=== PATIENT | male | born 1995 | race Caucasian/White ===

== ENCOUNTER 2016-08-01 09:39 | Inpatient (IN) | payer BC, OTHER ==
[~2016-08-01] VITALS: Ht 185.4 cm; Wt 88.9 kg
[2016-08-01] MEDS ORDERED: MAG HYDROX/AL HYDROX/SIMETH 30 ML LIQUID UDC PO PRN (14:45)
[2016-08-01] MEDS ORDERED: LORAZEPAM 2 MG/1 ML VIAL IM PRN (14:45)
[2016-08-01] MEDS ORDERED: MIRALAX 17 GM POWD.PACK PO PRN (14:45)
[2016-08-01] MEDS ORDERED: DICYCLOMINE HCL 20 MG TABLET PO PRN (14:45)
[2016-08-01] MEDS ORDERED: THIAMINE HCL 200 MG/2 ML VIAL IM ONE (14:45)
[2016-08-01] MEDS ORDERED: CLONIDINE HCL 0.1 MG TABLET PO PRN (14:45)
[2016-08-01] MEDS ORDERED: HYDROXYZINE PAMOATE 25 MG CAPSULE PO PRN (14:45)
[2016-08-01] MEDS ORDERED: LOPERAMIDE HCL 2 MG CAPSULE PO PRN ×2 (14:45)
[2016-08-01] MEDS ORDERED: diphenhydrAMINE 50 MG CAPSULE PO PRN (14:45)
[2016-08-01] MEDS ORDERED: PROMETHAZINE HCL 25 MG/1 ML VIAL IM PRN (14:45)
[2016-08-01] MEDS ORDERED: MAGNESIUM HYDROXIDE 30 ML LIQUID UDC PO PRN (14:45)
[2016-08-01] MEDS ORDERED: ACETAMINOPHEN 325 MG TABLET PO PRN (14:45)
[2016-08-01] MEDS ORDERED: ONDANSETRON ODT 4 MG TAB.RAPDIS SL PRN (14:45)
[2016-08-01] MEDS ORDERED: LORAZEPAM 1 MG TABLET PO PRN ×2 (14:45)
[2016-08-01 15:30] VITALS: BP 118/70
--- NOTE | 2016-08-01 15:30 | NUR ---
ADMISSION NOTE ALLERGY-NKA/NKFA STATUS-FULL CODE HEIGHT-6'1 WEIGHT-196IBS PCP-[facility]-Anxiety/Depression diagnosed in 2008 VITAL SIGNS-B/p-118/70, HR-81,RR-16,TEMP-97.4,O2-98%, PAIN-0/10 COWS-2 CIWA-1 Pt is 21 year old male admitted to [facility] at 1530 on08/01/[address] Hartmann. upon arrival pt was able to provide urine for urine drug screen with no complaint of burning or discomfort. Orientation to the unit provided. Skin assessment done noted with right upper arm skin discoloration skin noted intact. Pt denied any SI/HI ideation. Pt denied hospitalization in the last month. Pt is alert oriented x4 in stable condition. Vital signs were stable. Pt's abdomen is soft and non distended. Bowel sounds heard in all quadrants, respirations are even unlabored. lungs clear upon auscultation. Pt able to move all extremities without any pain or discomfort. Pt had last BM today 08/01/16. Pt refused FLU/PNA. Dr. Hartmann was notified of admission, Psychiatrist was also notified. Pt reported never smoking. Pt brought no home medication. Pt reported s/s of withdrawal as Anxiety, depression, sweats, shakes,trouble sleeping, chest pain, headache. Pt reported history of right elbow surgery in 2008. Pt reported currently living with parents. Pt also reported family history of mother has anxiety, depression, and heart disease, father DM type 2, depression, anxiety. Pt reported first time in treatment. SUBSTANCE HISTORY :- 1.ETOH(BEER)- DRINKING SINCE 2015, PO DAILY 3 TO 4 GLASSES OF 12 ONCE, LAST DRINK WAS ON 07/25/16 1 CAN OF 16 OZ AT 2100 2.ADDERALL- USING SINCE 2014 PO/SL 10 TO 15 MG 3 TO 4 TIMES A WEEK 10 to 15MG, LAST USED WAS 07/31/16 45MG, AT 1430 PO. 3.VYVANSE- USING SINCE 2014 ONCE OR TWICE A WEEK 70MG LAST USED WAS 07/04/16 AT 1200, 30MG PO. Pt is resting in his room in stable condition. Orientation to the unit provided. Pt educated regarding use of the call light and all questions answered. All safety measures in place, Fall precautions in place. Bed is locked and low position, call light within reach. Will cont to monitor. Addendum: 08/01/16 at 2004 by CHENCHO MOSQUEDA LVN Pt admitted for ETOH/Amphetamine dependence.
[2016-08-01 16:15] LABS: *AMPHETAMINE, URINE POSITIVE (NEGATIVE); *BARBITURATE, URINE NEGATIVE (NEGATIVE); *CANNABINOID, URINE NEGATIVE (NEGATIVE); *COCCAINE, URINE NEGATIVE (NEGATIVE); *OPIATE, URINE NEGATIVE (NEGATIVE); *PHENCYCLIDINE SCREEN,URINE NEGATIVE (NEGATIVE)
[2016-08-01 18:50] LABS: BASOPHILS # (AUTO) 0.1 K/uL (0.0-0.2); BASOPHILS % (AUTO) 0.6 % (0.0-2.0); EOSINOPHILS # (AUTO) 0.4 K/uL (0.0-0.7); HEMATOCRIT 45.3 % (40.0-50.0); HEMOGLOBIN 15.3 g/dL (14.0-18.0); LYMPHOCYTES # (AUTO) 2.5 K/uL (0.8-4.8); LYMPHOCYTES % (AUTO) 26.7 % (20.5-51.5); MEAN CORPUSCULAR HEMOGLOBIN 30.4 uug (27.0-31.0); MEAN CORPUSCULAR HGB CONC 34 g/dL (32.0-37.0); MEAN CORPUSCULAR VOLUME 90.1 fL (82.0-92.0); MONOCYTES # (AUTO) 0.6 K/uL (0.1-1.30); MONOCYTES % (AUTO) 6.3 % (0.0-11.0); NEUTROPHILS # (AUTO) 5.6 K/uL (1.8-8.9); NEUTROPHILS % (AUTO) 62.4 % (38.5-71.5); PLATELET COUNT (AUTO) 249 K/uL (150-450); RED BLOOD CELL COUNT(AUTO) 5.03 MIL/uL (4.70-6.10); RED CELL DISTRIBUTION WIDTH 11.5 % (11.5-14.5); WHITE BLOOD COUNT (AUTO) 9.2 K/uL (4.0-11.2)
[2016-08-01 19:02] LABS: ALANINE AMINOTRANSFERASE 34 U/L (16-63); ALBUMIN 4.2 g/dL (3.4-5.0); ALKALINE PHOSPHATASE 82 U/L (50-136); ASPARTATE AMINOTRANSFERASE 21 U/L (15-37); BILIRUBIN,TOTAL 1.4 mg/dL (0.2-1.0); CALCIUM 9.1 mg/dL (8.5-10.1); CARBON DIOXIDE 27 mmol/L (21-32); CHLORIDE 105 mmol/L (98-107); CREATININE 1.2 mg/dL (0.6-1.3); GFR 75 mL/min (>60); GLUCOSE 185 mg/dL (74-106); MAGNESIUM 1.9 mg/dL (1.8-2.4); POTASSIUM 3.7 mmol/L (3.5-5.1); SODIUM SERUM 142 mmol/L (136-145); UREA NITROGEN, BLOOD 9 mg/dL (7-18)
--- NOTE | 2016-08-01 19:25 | NUR ---
END OF SHIFT NOTE Gave report to night nurse 21 year old male admitted for ETOH/Amphetamine dependence. NKA/Regular diet, Full code. Skin intact. Pt reported PMH of Anxiety/Depression. Pt currently not on any taper PRN's available for withdrawal. No PRN's given during shift. Pt's total intake 500ml, x1 voided, Safety measures in place, call light within reach. Pt endorsed to night time nanny in stable condition.
[2016-08-01 19:27] LABS: HIV-1 p24 ANTIGEN NON REACTIVE (NONREACTIVE); HIV-1/2 ANTIBODY NON REACTIVE (NONREACTIVE)
[2016-08-01 19:31] LABS: THYROID STIMULATING HORMONE 1.639 mIU/mL (0.358-3.740)
[2016-08-01 19:38] LABS: ETHANOL < 3 MG/DL (0-0)
[2016-08-01 20:00] VITALS: BP 132/77
--- NOTE | 2016-08-01 20:00 | NUR ---
START OF SHIFT NOTE PATIENT IS A 21 YEAR OLD MALE , NEWLY ADMIT ON 08/01/16 FOR ETOH/AMPHETAMINE DEPENDENCE. PATIENT IS FULL CODE, REGULAR DIET AND NO KNOWN ALLERGY. PATIENT REPORTS PMH OF ANXIETY AND DEPRESSION. PATIENT DRINKS BEER 3-4 GLASSES OF 12 OZ SINCE JAN 2016, TAKES ADDERALL PO/SL 10-15 MG 3-4X A WEEK SINCE JAN 2015 AND VYVANSE 70 MG 1-2X A WEEK SINCE JAN 2015. PATIENT WAS PLACED ON ATIVAN PRN WITH PARAMETERS . ON FALL /SEIZURE PRECAUTION. FIRST TIME IN TREATMENT. SKIN INTACT. PATIENT DID NOT REQUIRE ANY PRN DURING THE DAY. LAST CIWA 1.PATIENT ALERT AND ORIENTED X 4. RESPIRATION EVEN AND UNLABORED. PATIENT STATES HE'S ALRIGHT JUST ANXIOUS. NO NV/D. DENIES ANY PAIN . SAFETY MEASURES IN PLACE. CALL LIGHT IN REACH. WILL CONTINUE TO MONITOR.
[2016-08-02] VITALS: BP 108/69
[2016-08-02 04:00] VITALS: BP 129/57
--- NOTE | 2016-08-02 07:30 | NUR ---
Start of shift Endorsement received from nightshift nurse. Pt is a 21 y/o male admitted for alcohol dependence. Pt has been placed under observation and withdrawal symptoms being treated. Pt is tolerating the detox well AEB CIWA 0. VS WNL, Full Code. PT is alert and oriented x4. Pt is in STABLE condition at this time. Remains compliant with medication and diet regimen. All needs have been met, All safety measures in place per hospital policy. Bed in lowest position, side rails up x2, call-light within reach. Will continue to monitor
--- NOTE | 2016-08-02 07:34 | NUR ---
END OF SHIFT NOTE PATIENT IS A 21 YEAR OLD MALE , NEWLY ADMIT ON 08/01/16 FOR ETOH/AMPHETAMINE DEPENDENCE. PATIENT IS FULL CODE, REGULAR DIET AND NO KNOWN ALLERGY. PATIENT REPORTS PMH OF ANXIETY AND DEPRESSION. PATIENT DRINKS BEER 3-4 GLASSES OF 12 OZ SINCE JAN 2016, TAKES ADDERALL PO/SL 10-15 MG 3-4X A WEEK SINCE JAN 2015 AND VYVANSE 70 MG 1-2X A WEEK SINCE JAN 2015. PATIENT WAS PLACED ON ATIVAN PRN WITH PARAMETERS . ON FALL /SEIZURE PRECAUTION. FIRST TIME IN TREATMENT. SKIN INTACT. PATIENT DID NOT REQUIRE ANY PRN DURING THE DAY. LAST CIWA 1.PATIENT ALERT AND ORIENTED X 4. RESPIRATION EVEN AND UNLABORED. PATIENT STATES HE'S ALRIGHT JUST ANXIOUS. NO NV/D. DENIES ANY PAIN . PATIENT IN ROOM MOST OF THE SHIFT. PATIENT DID NOT REQUIRE ANY PRN MEDICATION DURING SHIFT. SAFETY MEASURES IN PLACE. CALL LIGHT IN REACH. WILL CONTINUE TO MONITOR. SLEPT 9 HOURS . FLUID INTAKE 355 ML. VOIDED X 1. NO BM. LAST CIWA 0.
[2016-08-02 08:00] VITALS: BP 118/64
[2016-08-02] MEDS ORDERED: TUBERCULIN,PURIF.PROT.DERIV. 5 TU/0.1 ML TEST ID ONE (09:00)
[2016-08-02] MEDS: THIAMINE HCL 100 MG TABLET PO SCH (09:11)
[2016-08-02] MEDS: MULTIVITAMINS,THERAPEUTIC TABLET PO SCH (09:11)
[2016-08-02] MEDS: FOLIC ACID 1 MG TABLET PO SCH (09:11)
[2016-08-02 12:00] VITALS: BP 135/80
[2016-08-02 16:00] VITALS: BP 132/84
--- NOTE | 2016-08-02 19:12 | NUR ---
End of Shift Endorsement given to nightshift nurse. Pt is a 21 y/o male admitted for alcohol dependence. Pt has been placed under observation and withdrawal symptoms being treated. Pt is tolerating the detox well AEB CIWA 1. PT participated in groups and activities. Intake: 3400ml, Void x4, BM x1. VS WNL, Full Code. PT is alert and oriented x4. Pt is in STABLE condition at this time. Remains compliant with medication and diet regimen. All needs have been met, All safety measures in place per hospital policy. Bed in lowest position, side rails up x2, call-light within reach. Will continue to monitor
[2016-08-02 20:00] VITALS: BP 127/68
--- NOTE | 2016-08-02 20:00 | NUR ---
START OF SHIFT NOTE PATIENT IS A 21 YEAR OLD MALE, ADMITTED ON 08/01/16 FOR ETOH/AMPHETAMINE DEPENDENCE. PATIENT IS FULL CODE, REGULAR DIET AND NO KNOWN ALLERGY. PATIENT REPORTS PMH OF ANXIETY AND DEPRESSION. PATIENT DRINKS BEER 3-4 GLASSES OF 12 OZ SINCE JAN 2016, ADDERALL PO/SL 10-15 MG 3-4X A WEEK SINCE JAN 2015 AND VYVANSE 70 MG 1-2X A WEEK SINCE JAN 2015. PATIENT IS ON PRN ATIVAN WITH PARAMETERS. FIRST TIME IN TREATMENT. SKIN INTACT. PATIENT DID NOT REQUIRE ANY PRN MEDICATIONS DURING THE DAY. LAST CIWA 0. PATIENT IN ROOM, READING BOOK . PATIENT ALERT AND ORIENTED X 4. RESPIRATION EVEN AND UNLABORED. PATIENT C/O HEADACHE 09/26. NO N/V. NO TREMORS, NO SWEATING. PATIENT WITH GOOD APPETITE AND DRINKING FLUIDS WELL. SAFETY MEASURES IN PLACE. CALL LIGHT IN REACH. WILL CONTINUE TO MONITOR.
--- NOTE | 2016-08-02 20:36 | NUR ---
PRN TYLENOL ADMINISTRATION PATIENT C/O HEADACHE 09/26. PRN TYLENOL GIVEN. WILL MONITOR FOR EFFECTIVENESS.
--- NOTE | 2016-08-02 21:36 | NUR ---
PRN TYLENOL RE-ASSESSMENT PATIENT STATES TYLENOL HELPFUL AND EFFECTIVE. WILL CONTINUE TO MONITOR
[2016-08-03] VITALS: BP 126/69
[2016-08-03 04:00] VITALS: BP 113/64
--- NOTE | 2016-08-03 07:05 | NUR ---
Start of shift Endorsement received from nightshift nurse. Pt is a 21 y/o male admitted for alcohol dependence. Pt has been placed under observation and withdrawal symptoms being treated. Pt is tolerating the detox well AEB CIWA 0. Pt reports sleeping 8 hours. VS WNL, Full Code. PT is alert and oriented x4. Pt is in STABLE condition at this time. Remains compliant with medication and diet regimen. All needs have been met, All safety measures in place per hospital policy. Bed in lowest position, side rails up x2, call-light within reach. Will continue to monitor
--- NOTE | 2016-08-03 07:13 | NUR ---
END OF SHIFT NOTE PATIENT IS A 21 YEAR OLD MALE, ADMITTED ON 08/01/16 FOR ETOH/AMPHETAMINE DEPENDENCE. PATIENT IS FULL CODE, REGULAR DIET AND NO KNOWN ALLERGY. PATIENT REPORTS PMH OF ANXIETY AND DEPRESSION. PATIENT DRINKS BEER 3-4 GLASSES OF 12 OZ SINCE JAN 2016, ADDERALL PO/SL 10-15 MG 3-4X A WEEK SINCE JAN 2015 AND VYVANSE 70 MG 1-2X A WEEK SINCE JAN 2015. PATIENT IS ON PRN ATIVAN WITH PARAMETERS. FIRST TIME IN TREATMENT. SKIN INTACT. ALERT AND ORIENTED X 4. RESPIRATION EVEN AND UNLABORED. PATIENT C/O HEADACHE 09/26. NO N/V. NO TREMORS, NO SWEATING. PATIENT WITH GOOD APPETITE AND DRINKING FLUIDS WELL. PATIENT WAS GIVEN PRN TYLENOL FOR HEADACHE, EFFECTIVE. SAFETY MEASURES IN PLACE. CALL LIGHT IN REACH. WILL CONTINUE TO MONITOR. SLEPT 8 HOURS. FLUID INTAKE 737 ML. VOIDED X 1. NO BM. LAST CIWA 0.
[2016-08-03 08:02] VITALS: BP 118/61
[2016-08-03] MEDS: buPROPion XL 150 MG TAB.SR.24H PO SCH (08:51)
[2016-08-03] MEDS: MULTIVITAMINS,THERAPEUTIC TABLET PO SCH (08:52)
[2016-08-03] MEDS: FOLIC ACID 1 MG TABLET PO SCH (08:52)
[2016-08-03] MEDS: THIAMINE HCL 100 MG TABLET PO SCH (08:52)
[2016-08-03 09:36] LABS: BILIRUBIN,DIRECT 0.2 mg/dL (0.0-0.2); BILIRUBIN,TOTAL 1.4 mg/dL (0.2-1.0); CALCIUM 8.8 mg/dL (8.5-10.1); MAGNESIUM 1.8 mg/dL (1.8-2.4); POTASSIUM 4.2 mmol/L (3.5-5.1)
[2016-08-03 12:00] VITALS: BP 122/66
[2016-08-03 12:09] LABS: HCV AB 0.1 s/co ratio (0.0-0.9); HEPATITIS B CORE AB, IgM Negative (Negative); HEPATITIS B SURFACE AG Negative (Negative)
[2016-08-03 16:00] VITALS: BP 136/64
--- NOTE | 2016-08-03 19:07 | NUR ---
End of Shift Endorsement given to nightshift nurse. Pt is a 21 y/o male admitted for alcohol dependence. Pt has been placed under observation and withdrawal symptoms being treated. Pt is tolerating the detox well AEB CIWA 0. PT participated in groups and activities. Intake: 1460ml, Void x4, BM x1. VS WNL, Full Code. PT is alert and oriented x4. Pt is in STABLE condition at this time. Remains compliant with medication and diet regimen. All needs have been met, All safety measures in place per hospital policy. Bed in lowest position, side rails up x2, call-light within reach. Will continue to monitor
--- NOTE | 2016-08-03 19:30 | NUR ---
START OF SHIFT NOTE: Patient is a 21 y.o male admitted on 08/01/16 for Alcohol dependence. Patient reported drinking 3-4 glasses of 12 oz beer. Patient with medical history of Anxiety & Depression. Patient is on a regular diet with no known food and drug allergies. Full Code status. Seizure and Fall precautions noted. Patient is placed under observation with PRN mediations available for symptoms of withdrawal. Patient has been compliant. Last CIWA is 0. No PRN medications given during day shift. Patient is alert & oriented x4. No shortness of breath noted. Respiration even & unlabored. Abdomen soft & non-distended. Bowel sounds active in all four quadrants. No nausea/vomiting noted. Pt denies any complaints of pain/discomfort. No bilateral hand tremors noted. Patient denies SI/HI. Safety precautions are in place. Bed locked in lowest position. Both side rails up. Call light within pt's reach. Will continue to monitor patient.
[2016-08-03 20:57] VITALS: BP 131/68
--- NOTE | 2016-08-04 | NUR ---
Vitals/CIWA deferred Patient refused vitals at this time. Patient asleep in bed. No shortness of breath noted. Respiration even & unlabored. Safety precautions are in place. Will continue to monitor.
--- NOTE | 2016-08-04 07:24 | NUR ---
END OF SHIFT NOTE: Patient is a 21 y.o male admitted on 08/01/16 for Alcohol dependence. Patient reported drinking 3-4 glasses of 12 oz beer. Patient with medical history of Anxiety & Depression. Patient is on a regular diet with no known food and drug allergies. Full Code status. Seizure and Fall precautions noted. Patient is under observation with PRN medications available for symptoms of withdrawal. Last CIWA is 0. No PRN medications were given to patient. Patient remained stable and vitals remains WNL. Patient alert & oriented x4. No shortness of breath noted. Respiration even & unlabored. Pt still asleep at this time. Pt slept for a total of 7 hours. Pt consumed 2210ml of fluids. Voided 3x with no bowel movement. All needs attended & met. Safety precautions are in place. Will endorse pt to day shift nurse.
--- NOTE | 2016-08-04 07:47 | NUR ---
BEGINNING OF SHIFT Patient endorsement report received from restaurant shift leader nurse, all pertinent information discussed. Patient is a 16 year old male admitted on 08/01/2016 with admitting Dx: ETOH dependence. Patient reports past medical history of anxiety, and depression. Patient with substance use history of: etoh-beer 3 -4 glasses of 12 oz a day since Jan 2016, Adderall 10-15mg 3-4 x a week and Vyvanse 70mg 1-2x a week since January 2015. As per restaurant shift leader patient slept for 7 hours, and received no PRNs during restaurant shift leader. Patients last ciwa score of: 0. Patient received in bed with eyes closed respirations are even and unlabored. Responsive to verbal stimuli, educated regarding plan of care for the day and medication regimen, safety measures in place, call light with in reach, will continue to monitor closely.
[2016-08-04 09:12] VITALS: BP 120/69
[2016-08-04] MEDS: IBUPROFEN 400 MG TABLET PO PRN ×2 (09:17→20:12)
[2016-08-04] MEDS: buPROPion XL 150 MG TAB.SR.24H PO SCH (09:17)
[2016-08-04] MEDS: MULTIVITAMINS,THERAPEUTIC TABLET PO SCH (09:17)
[2016-08-04] MEDS: FOLIC ACID 1 MG TABLET PO SCH (09:17)
[2016-08-04] MEDS: THIAMINE HCL 100 MG TABLET PO SCH (09:17)
--- NOTE | 2016-08-04 09:17 | NUR ---
PRN MOTRIN Patient c/o neck and back pain, administered Motrin 400mg Po as ordered, will monitor effectiveness.
--- NOTE | 2016-08-04 10:17 | NUR ---
MOTRIN REASSESSMENT Patient reports medication with relief, will continue to monitor.
[2016-08-04 13:29] VITALS: BP 108/63
[2016-08-04 17:49] VITALS: BP 137/60
[2016-08-04 17:51] LABS: *AMPHETAMINE, URINE NEGATIVE (NEGATIVE); *BARBITURATE, URINE NEGATIVE (NEGATIVE); *CANNABINOID, URINE NEGATIVE (NEGATIVE); *COCCAINE, URINE NEGATIVE (NEGATIVE); *OPIATE, URINE NEGATIVE (NEGATIVE); *PHENCYCLIDINE SCREEN,URINE NEGATIVE (NEGATIVE)
--- NOTE | 2016-08-04 18:45 | NUR ---
END OF SHIFT Patient alert and oriented x4, compliant with therapeutic plan of care. Patient with admitting Dx: ETOH dependence, Patient continues under close observation, and is scheduled to be discharged tomorrow to [facility], urine drug screen completed. Patient encouraged adequate PO fluid intake as tolerated,. 0900 assessment patient presented with: no s/sx of withdrawal with ciwa score of: 0; 1300 assessment patient presented with no s/sx of withdrawal with ciwa score of: 0 1700 assessment patient presented with no s/sx of withdrawal with ciwa score of: 0 . Patient encouraged to attend group therapies/sessions to learn new coping skills to prevent relapse, noted attending and participating, denies SI/HI. Safety measures in place. Call light with in reach, will continue to monitor closely. Patient endorsement report given to hourly shift nurse, all pertinent information discussed.
--- NOTE | 2016-08-04 19:15 | NUR ---
START OF SHIFT NOTE: Patient is a 21 y.o male admitted on 08/01/16 for Alcohol dependence. Patient reported drinking 3-4 glasses of 12 oz beer. Patient with medical history of Anxiety & Depression. Patient is on a regular diet with no known food and drug allergies. Full Code status. Seizure and Fall precautions noted. Patient is placed under observation with PRN medications available for symptoms of withdrawal. Patient has been compliant. Last CIWA is 0. Pt was given PRN Motrin during day shift. Patient is scheduled to be discharge tomorrow. Urine drug screen collected and resulted. Patient is alert & oriented x4. No shortness of breath noted. Respiration even & unlabored. Abdomen soft & non-distended. Bowel sounds active in all four quadrants. No nausea/vomiting noted. Pt complains of 3/10 back of neck pain. No bilateral hand tremors noted. Patient denies SI/HI. Safety precautions are in place. Bed locked in lowest position. Both side rails up. Call light within pt's reach. Will continue to monitor patient.
[2016-08-04 20:00] VITALS: BP 141/80
--- NOTE | 2016-08-04 20:12 | NUR ---
PRN Motrin Patient complains of 3/10 back of neck pain. PRN Motrin given as ordered. Will continue to monitor patient.
[2016-08-04] MEDS ORDERED: Bupropion Hcl PO (21:02)
--- NOTE | 2016-08-04 21:12 | NUR ---
PRN Reassessment PRN medication effective. Patient verbalized relief from pain. Patient lying in bed and appears comfortable. Will continue to monitor patient.
--- NOTE | 2016-08-05 06:59 | NUR ---
END OF SHIFT NOTE: Patient is a 21 y.o male admitted on 08/01/16 for Alcohol dependence. Patient reported drinking 3-4 glasses of 12 oz beer. Patient with medical history of Anxiety & Depression. Patient is on a regular diet with no known food and drug allergies. Full Code status. Seizure and Fall precautions noted. Patient was under observation with PRN medications available for symptoms of withdrawal. Pt is scheduled to be discharge today. Urine drug screen collected and resulted. Last CIWA is 0. Pt was given PRN Motrin for pain at the back of neck and was effective. Patient remained stable and vitals remains WNL. Patient alert & oriented x4. No shortness of breath noted. Respiration even & unlabored. Pt still asleep at this time. Pt slept for a total of 4 hours. Pt consumed 1300ml of fluids. Voided 4x with no bowel movement. All needs attended & met. Safety precautions are in place. Will endorse pt to day shift nurse.
--- NOTE | 2016-08-05 07:40 | NUR ---
START OF SHIFT NOTE Received report from night nurse, 21 year old male admitted for Alcohol dependence. NKA/Full code/Regular diet. Pt reported PMH of Anxiety & Depression. Seizure and Fall precautions noted. Pt is currently not in any taper but PRN mediations available for symptoms of withdrawal. Per endorsement pt received PRN Motrin for pain effective. Last CIWA-0. Pt slept for 4 hours. Pt scheduled to be discharge today. Received pt alert & oriented x4. No shortness of breath noted. Respiration even & unlabored. Abdomen soft & non-distended. Bowel sounds active in all four quadrants. No nausea/vomiting noted. Pt denies any complaints of pain/discomfort. Patient denies SI/HI. Safety precautions are in place, Call light within reach. Will cont to monitor.
[2016-08-05 08:00] VITALS: BP 136/69
[2016-08-05] MEDS: MULTIVITAMINS,THERAPEUTIC TABLET PO SCH (08:29)
[2016-08-05] MEDS: buPROPion XL 150 MG TAB.SR.24H PO SCH (08:29)
[2016-08-05] MEDS: FOLIC ACID 1 MG TABLET PO SCH (08:29)
[2016-08-05] MEDS: THIAMINE HCL 100 MG TABLET PO SCH (08:29)
[2016-08-05 12:00] VITALS: BP 111/61
[2016-08-05 16:00] VITALS: BP 141/78
--- NOTE | 2016-08-05 18:12 | NUR ---
PRN VISTARIL Pt c/o of anxiety. PRN Vistaril 50mg Po as ordered. Will cont to monitor.
--- NOTE | 2016-08-05 19:07 | NUR ---
REASSESSMENT Pt reported medication effective, anxiety subside. Will cont to monitor.
--- NOTE | 2016-08-05 19:08 | NUR ---
END OF SHIFT NOTE Gave report to night nurse 21 year old male admitted for ETOH/Amphetamine dependence. NKA/Regular diet, Full code. Skin intact. Pt reported PMH of Anxiety/Depression. During shift pt received PRN Vistaril for anxiety noted effective. Pt's total intake 3000ml, x5 voided, and x1 BM. Last CIWA-0. Pt scheduled to discharge today at 1915. Safety measures in place, call light within reach. Pt endorsed to mold shifter in stable condition.
--- NOTE | 2016-08-05 19:23 | NUR ---
Discharge Patient is in stable condition, vitals within normal limits, skin is noted intact. Patient denies any suicidal or homicidal ideations. All patients discharge paperwork signed and dated. Patient was discharged from [facility] on 08/05/16 at 1923. Patient was escorted off the unit by Lead TS with all of his medications, belongings and prescriptions. notified.
[2016-08-05 19:35] VITALS: BP 137/69
== END 2016-08-05 19:23 | disposition other institution (70) | DRG 895 ==
LOC: SRC 14:22
PROVIDERS: ADMIT Internal Medicine; ATTEND Internal Medicine
PROC: HZ2ZZZZ Detoxification Services for Substance Abuse Treatment (ICD-10-PCS; principal; 2016-08-01)
PROC: HZ31ZZZ Individual Counseling for Substance Abuse Treatment, Behavioral (ICD-10-PCS; 2016-08-02)
PROC: HZ41ZZZ Group Counseling for Substance Abuse Treatment, Behavioral (ICD-10-PCS; 2016-08-04)
DX: F15.23 Other stimulant dependence with withdrawal (principal); F33.1 Major depressive disorder, recurrent, moderate; F10.20 Alcohol dependence, uncomplicated; Y90.9 Presence of alcohol in blood, level not specified; E80.4 Gilbert syndrome; F41.9 Anxiety disorder, unspecified; R07.81 Pleurodynia; Z83.3 Family history of diabetes mellitus; Z82.49 Family history of ischemic heart disease and other diseases of the circulatory system; Z81.8 Family history of other mental and behavioral disorders
CPT/HCPCS: 36415; 70030-TC; 71010; 80307; 80324; 83735; 84443; 85025; 86580; 86592; 86705; 86803; 87340; 87806; 93005; A4663; G6040-TC